=== PATIENT | female | born 1985 | race Two or more races ===

== ENCOUNTER 2016-10-23 13:53 | Emergency (ER) | payer BC, MEDICAID ==
[2016-10-23 16:04] LABS: ABSOLUTE BASOPHILS # (AUTO) 0.1 10^3/uL (0.0-0.2); ABSOLUTE EOSINOPHILS # (AUTO) 0.2 10^3/uL (0.0-0.6); ABSOLUTE LYMPHOCYTES (AUTO) 1.8 10^3/uL (0.5-4.7); ABSOLUTE MONOCYTES (AUTO) 1.1 10^3/uL (0.1-1.4); ABSOLUTE NEUT (AUTO) 8.8 10^3/uL (1.7-8.2); BASOPHILS % (AUTO) 0.5 % (0-2); EOSINOPHILS % (AUTO) 1.6 % (0-6); HEMOGLOBIN 12.5 g/dL (12.0-15.5); HGB HCT DIFFERENCE -1.5; MEAN CORPUSCULAR HEMOGLOBIN 26.9 pg (27.0-33.4); MEAN CORPUSCULAR VOLUME 84 fl (80-97); MONOCYTES % (AUTO) 8.9 % (3-13); RED BLOOD COUNT 4.65 10^6/uL (3.72-5.28); WHITE BLOOD COUNT 11.9 10^3/uL (4.0-10.5)
[2016-10-23 16:22] LABS: APPEARANCE,URINE CLEAR; BILIRUBIN,URINE NEGATIVE (NEGATIVE); GLUCOSE, URINE NEGATIVE (NEGATIVE); KETONES,URINE NEGATIVE (NEGATIVE); LEUKOCYTE ESTERASE,URINE TRACE (NEGATIVE); NITRITE,URINE NEGATIVE (NEGATIVE); PROTEIN,URINE NEGATIVE (NEGATIVE); URINE SPECIFIC GRAVITY 1.002; UROBILINOGEN,URINE NEGATIVE mg/dL (<2.0)
[2016-10-23 16:29] LABS: ANION GAP 11 (5-19); BACTERIA,URINE TRACE /HPF; BLOOD UREA NITROGEN 6 mg/dL (7-20); CALCIUM 9.8 mg/dL (8.4-10.2); CARBON DIOXIDE 23 mmol/L (22-30); CHLORIDE 103 mmol/L (98-107); GLUCOSE 72 mg/dL (75-110); POTASSIUM 4.1 mmol/L (3.6-5.0); SODIUM 137.4 mmol/L (137-145)
--- NOTE | 2016-10-23 16:45 | RADIOLOGY REPORT (SQ) ---
EXAM DESCRIPTION: U/S OB 14+ TRNABD 1GES W/O DOP COMPLETED DATE/TIME: 10/23/2016 4:32 pm REASON FOR STUDY: vaginal bleeding COMPARISON: 02/13/2013 TECHNIQUE: Static and Dynamic grayscale imaging performed of gravid uterus using transabdominal appr oach. Additional selected color Doppler and spectral images recorded. All stored on PACS. LIMITATIONS: Limited visualization of anatomy due to positioning and early gestational an age FINDINGS: EGA: 15 weeks, 5 days MARU: 04/11/2017 EFW: 128 g +/- 19 g PERCENTILE: Not applicable. Fetus less than or equal to 20 weeks gestation. JOSS: Adequate amount. PLACENTA: Anterior PRESENTATION: Variable ANATOMY: HEART RATE: 147 beats per minute. FOUR CHAMBER HEART: Not visualized THREE VESSEL CORD: Not visualized CORD INSERTION: Not visualized KIDNEYS AND BLADDER: Not visualized STOMACH: Visualized and appears normal. SPINE: Normal as visualized. BRAIN AND LATERAL VENTRICLES: Not visual OTHER: No other significant finding. MATERNAL ADNEXA: Maternal ovaries not visualized. CERVICAL LENGTH: 4.4 cm Closed. OTHER: 5.4 x 4.2 x 4.2 cm rounded structure demonstrating heterogeneous echogenicity within the poste rior myometrium, most likely on the basis of an intramural fibroid. IMPRESSION: LIVING INTRAUTERINE . ESTIMATED GESTATIONAL AGE 15 weeks, 5 days NO VISUALIZED ANOMALIES. Trimester of : Second trimester - 13 weeks 1 day to 27 weeks 6 days. TECHNICAL DOCUMENTATION: JOB ID: [id number] [employer]- All Rights Reserved
[2016-10-23] MEDS ORDERED: NITROFURANTOIN MONOHYD/M-CRYST 100 MG CAPSULE PO ONE (17:35)
--- NOTE | 2016-10-23 17:50 | ER Document Report ---
ED General - General Chief Complaint: Vag Bleeding, +preg <12wks Stated Complaint: VAGINAL BLEEDING Time Seen by Provider: 10/23/16 15:07 TRAVEL OUTSIDE OF THE [place] IN LAST 30 DAYS: No - HPI Patient complains to provider of: Vaginal bleeding lower abdominal pain Notes: Patient coming in for evaluation of lower abdominal pain vaginal bleeding. Patient states she is approximately 14 weeks . Patient is not aware of her Rh status. Patient denies any history of trauma denies fevers chills nausea vomiting diarrhea - Related Data Allergies/Adverse Reactions: No Known Allergies Allergy (Verified 10/23/16 13:55) Past Medical History - General Last Menstrual Period: 06/06/2016 - Social History Smoking Status: Never Smoker Chew tobacco use (# tins/day): No Frequency of alcohol use: None Drug Abuse: None Family History: Reviewed & Not Pertinent Patient has suicidal ideation: No Patient has homicidal ideation: No Pulmonary Medical History: Denies: Hx Tuberculosis Renal/ Medical History: Denies: Hx Peritoneal Dialysis Past Surgical History: Reports: Hx Gynecologic Surgery - exp lap (ectopic) - Immunizations Hx Diphtheria, Pertussis, Tetanus Vaccination: No Review of Systems - Review of Systems Constitutional: No symptoms reported EENT: No symptoms reported Cardiovascular: No symptoms reported Respiratory: No symptoms reported Gastrointestinal: No symptoms reported Genitourinary: No symptoms reported Female Genitourinary: Vaginal discharge, Vaginal bleeding Musculoskeletal: No symptoms reported Skin: No symptoms reported Hematologic/Lymphatic: No symptoms reported Neurological/Psychological: No symptoms reported -: Yes All other systems reviewed and negative Physical Exam - Vital signs Vitals: Temp Pulse Resp BP Pulse Ox 98.2 F 102 H 18 134/90 H 98 10/23/16 13:55 10/23/16 13:55 10/23/16 13:55 10/23/16 13:55 10/23/16 13:55 Interpretation: Normal - General General appearance: Appears well, Alert - HEENT Head: Normocephalic, Atraumatic Eyes: Normal Pupils: PERRL - Respiratory Respiratory status: No respiratory distress Chest status: Nontender Breath sounds: Normal Chest palpation: Normal - Cardiovascular Rhythm: Regular Heart sounds: Normal auscultation Murmur: No - Abdominal Inspection: Normal Distension: No distension Bowel sounds: Normal Tenderness: Nontender Organomegaly: No organomegaly - Back Back: Normal, Nontender - Extremities General upper extremity: Normal inspection, Nontender, Normal color, Normal ROM , Normal temperature General lower extremity: Normal inspection, Nontender, Normal color, Normal ROM , Normal temperature, Normal weight bearing. No: Deanna's sign - Neurological Neuro grossly intact: Yes Cognition: Normal Orientation: AAOx4 [place] Coma Scale Eye Opening: Spontaneous [place] Coma Scale Verbal: Oriented [place] Coma Scale Motor: Obeys Commands [place] Coma Scale Total: 15 Speech: Normal Motor strength normal: LUE, RUE, LLE, RLE Sensory: Normal - Psychological Associated symptoms: Normal affect, Normal mood - Skin Skin Temperature: Warm Skin Moisture: Dry Skin Color: Normal Course - Re-evaluation Re-evalutation: 10/23/16 20:56 Reason for vaginal bleeding. Patient's ultrasound did not show any signs of significant pathology. Patient does have bacteria in the urine will treat for UTI. Patient encouraged follow-up with her LIBRARY AIDE. - Vital Signs Vital signs: Temp Pulse Resp BP Pulse Ox 98.2 F 90 15 118/96 H 99 10/23/16 13:55 10/23/16 17:53 10/23/16 17:53 10/23/16 17:53 10/23/16 17:53 - Laboratory Result Diagrams: 10/23/16 15:44 10/23/16 15:44 Laboratory results interpreted by me: 10/23/16 10/23/16 10/23/16 15:44 15:44 15:44 WBC 11.9 H MCH 26.9 L RDW 15.0 H Absolute Neutrophils 8.8 H BUN 6 L Creatinine 0.40 L Glucose 72 L Beta HCG, Quant 10658.00 H Urine Blood MODERATE H Ur Leukocyte Esterase TRACE H Discharge - Discharge Clinical Impression: Abdominal pain in Qualifiers: Trimester: first trimester Qualified Code(s): O26.891 - Other specified related conditions, first trimester; R10.9 - Unspecified abdominal pain Vaginal bleeding in Qualifiers: Trimester: first trimester Qualified Code(s): O46.91 - Antepartum hemorrhage, unspecified, first trimester Urinary tract infection Qualifiers: Urinary tract infection type: acute cystitis Hematuria presence: without hematuria Qualified Code(s): N30.00 - Acute cystitis without hematuria Condition: Good Disposition: HOME, SELF-CARE Instructions: ([facility]), Bleeding During Early ([facility]), Pelvic Pain in ([facility]), Urinary Tract Infection ([facility]) Additional Instructions: Take Medication as prescribed. Return to the ER symptoms worsen. Follow with your primary care physician. Prescriptions: Nitrofurantoin/Nitrofuran Mac [Macrobid 100 mg Capsule] 1 tab PO BID #14 capsule Forms: Return to Work Referrals: JANEY LOZADA MD [Primary Care Provider] - Follow up as needed
[2016-10-23 17:55] VITALS: BP 118/96
== END 2016-10-23 18:00 | disposition home or self-care (01) ==
LOC: ER 13:53
DX: O46.91 Antepartum hemorrhage, unspecified, first trimester (principal); O26.891 Other specified pregnancy related conditions, first trimester; N30.00 Acute cystitis without hematuria; R10.30 Lower abdominal pain, unspecified
CPT/HCPCS: 99284; 86900; 86901; 36415; 84702; 85025; 80048; 81001; 76805; J8499

== ENCOUNTER 2017-03-09 10:24 | Inpatient (IN) | payer BC ==
[2017-03-09 11:11] LABS: APPEARANCE,URINE CLEAR; BILIRUBIN,URINE NEGATIVE (NEGATIVE); GLUCOSE, URINE NEGATIVE (NEGATIVE); KETONES,URINE NEGATIVE (NEGATIVE); LEUKOCYTE ESTERASE,URINE TRACE (NEGATIVE); NITRITE,URINE NEGATIVE (NEGATIVE); PROTEIN,URINE NEGATIVE (NEGATIVE); URINE SPECIFIC GRAVITY 1.008; UROBILINOGEN,URINE NEGATIVE mg/dL (<2.0)
[2017-03-09 11:24] LABS: URINE BARBITURATES SCREEN NEGATIVE; URINE METHADONE SCREEN NEGATIVE; URINE OPIATES LOW NEGATIVE; URINE PHENCYCLIDINE SCREEN NEGATIVE
--- NOTE | 2017-03-09 13:05 | RADIOLOGY REPORT (SQ) ---
EXAM DESCRIPTION: U/S OB LIMITED COMPLETED DATE/TIME: 03/09/2017 12:55 pm REASON FOR STUDY: IUP 34 wks vaginal leaking/JOSS COMPARISON: 10/23/2016 TECHNIQUE: Limited transabdominal grayscale ultrasound for evaluation of specific requested obstetri carl parameters. LIMITATIONS: None. FINDINGS: CERVICAL LENGTH: Not measured. Closed. JOSS: 7.3 cm. FHR: 173 beats per minute. PRESENTATION: Cephalic. OTHER: No other significant findings. IMPRESSION: LIMITED OBSTETRICAL ULTRASOUND WITH MEASURED PARAMETERS DELINEATED ABOVE. Trimester of : Third trimester - 28 weeks to delivery. TECHNICAL DOCUMENTATION: JOB ID: [id number] [employer]- All Rights Reserved
[2017-03-09] MEDS ORDERED: PENICILLIN G-K 5 MILLION UNIT VIAL IV ONE (13:13)
[2017-03-09] MEDS ORDERED: PENICILLIN G-K 5 MILLION UNIT VIAL ONE ×3 (13:27→21:18)
[2017-03-09] MEDS: RINGERS SOLUTION,LACTATED 1,000 ML IV PRN (13:36)
[2017-03-09 14:32] LABS: ABSOLUTE EOSINOPHILS # (AUTO) 0.2 10^3/uL (0.0-0.6); ABSOLUTE LYMPHOCYTES (AUTO) 1.9 10^3/uL (0.5-4.7); ABSOLUTE MONOCYTES (AUTO) 0.9 10^3/uL (0.1-1.4); ABSOLUTE NEUT (AUTO) 6.3 10^3/uL (1.7-8.2); BASOPHILS % (AUTO) 0.5 % (0-2); EOSINOPHILS % (AUTO) 1.9 % (0-6); HEMATOCRIT 35.3 % (36.0-47.0); HEMOGLOBIN 11.9 g/dL (12.0-15.5); HGB HCT DIFFERENCE 0.4; LYMPHOCYTES % (AUTO) 20.5 % (13-45); MEAN CORPUSCULAR HEMOGLOBIN 28.5 pg (27.0-33.4); MEAN CORPUSCULAR HGB CONC 33.6 g/dL (32.0-36.0); MEAN CORPUSCULAR VOLUME 85 fl (80-97); MONOCYTES % (AUTO) 9.6 % (3-13); RED BLOOD COUNT 4.16 10^6/uL (3.72-5.28); RED CELL DISTRIBUTION WIDTH 15.2 % (11.5-14.0); SEGMENTED NEUTROPHILS % (AUTO) 67.5 % (42-78); WHITE BLOOD COUNT 9.4 10^3/uL (4.0-10.5)
--- NOTE | 2017-03-09 14:37 | L&D Progress Notes ---
PROGRESS NOTES Datetime Report Generated by CPN: 03/09/2017 14:37 PROGRESS NOTE Vital Signs : Reviewed; Within Normal Limits Comment: Spec exam, + pooling, moderate amount of fluid, amnisure obtained, irreg uc's, OOB to BR, pt received 1000cc LR, JOSS 7 FETUS A FHR - Baseline: 140 Monitoring: External US Variability: Moderate 6-25bpm Accelerations: 15X15 Decelerations: None : 34.3 SIGNATURE SIGNATURE: [id number] Assignment: Clarence Zarate MD Signature: with User ID: [email or web address] : with User ID: [email or web address]
[2017-03-09 14:53] LABS: AMNISURE (ROM) POSITIVE (NEGATIVE)
[2017-03-09] MEDS ORDERED: OXYTOCIN/NORMAL SALINE 20 UNIT/1,000 ML RTUINJ IV PRN (15:08)
[2017-03-09] MEDS ORDERED: OXYTOCIN/NORMAL SALINE 20 UNIT/1,000 ML RTUINJ ONE (16:00)
[2017-03-09] MEDS: PENICILLIN G POTASSIUM 2,500,000 UNIT in DEXTROSE 5%-WATER 50 ML IV SCH ×2 (17:32→21:26)
[2017-03-09] MEDS ORDERED: ONDANSETRON HCL INJ/PF 4 MG/2 ML SDV IV ONE (23:46)
[2017-03-09] MEDS ORDERED: ONDANSETRON HCL INJ/PF 4 MG/2 ML SDV ONE (23:50)
[2017-03-10] MEDS ORDERED: FENTANYL/BUPIVACAINE/NS/PF 200 MCG/100 ML RTUINJ EPI PRN (01:15)
[2017-03-10] MEDS ORDERED: BUPIVACAINE HCL 0.25 % INJ/PF (2.5 MG/1 ML) 30 ML VIAL INFIL ONE (01:15)
[2017-03-10] MEDS ORDERED: EPHEDRINE SULFATE INJ 50 MG/1 ML AMPULE IV PRN (01:15)
[2017-03-10] MEDS ORDERED: BENZOIN/ALOE VERA/STORAX/TOLU TINCTURE 60 ML TP PRN (01:15)
[2017-03-10] MEDS ORDERED: DIPHENHYDRAMINE HCL 50 MG/ML VIAL IV PRN (01:15)
[2017-03-10] MEDS ORDERED: PHENYLEPHRINE HCL INJ/PF 10 MG/1 ML SDV ONE (01:23)
[2017-03-10] MEDS ORDERED: EPHEDRINE SULFATE INJ 50 MG/1 ML AMPULE ONE (01:23)
[2017-03-10] MEDS ORDERED: FENTANYL CITRATE INJ/PF 100 MCG/2 ML AMPUL ONE (01:23)
[2017-03-10] MEDS ORDERED: FENTANYL/BUPIVACAINE/NS/PF 200 MCG/100 ML RTUINJ EPI ONE (01:24)
[2017-03-10] MEDS ORDERED: BUPIVACAINE HCL 0.25 % INJ/PF (2.5 MG/1 ML) 30 ML VIAL ONE (01:24)
[2017-03-10] MEDS ORDERED: PENICILLIN G-K 5 MILLION UNIT VIAL ONE ×2 (01:33→05:07)
[2017-03-10] MEDS ORDERED: LIDOCAINE 1% INJ-PF (10 MG/ML) 30 ML SDV ONE (01:54)
[2017-03-10] MEDS ORDERED: MISOPROSTOL 0.2 MG TABLET ONE (01:54)
[2017-03-10] MEDS ORDERED: OXYTOCIN/NORMAL SALINE 20 UNIT/1,000 ML RTUINJ ONE (01:54)
[2017-03-10] MEDS: RINGERS SOLUTION,LACTATED 1,000 ML IV PRN ×2 (02:14→03:01)
[2017-03-10] MEDS: PENICILLIN G POTASSIUM 2,500,000 UNIT in DEXTROSE 5%-WATER 50 ML IV SCH ×2 (02:50→05:13)
[2017-03-10] MEDS ORDERED: MAGNESIUM HYDROXIDE SUSP 30 ML UDCUP PO PRN (03:30)
[2017-03-10] MEDS ORDERED: DIPHENHYDRAMINE HCL 25 MG CAPSULE PO PRN (03:30)
[2017-03-10] MEDS ORDERED: PROMETHAZINE HCL INJ 25 MG/1 ML VIAL IV PRN (03:30)
[2017-03-10] MEDS ORDERED: DIBUCAINE 1% OINTMENT 28 GM TP PRN (03:30)
[2017-03-10] MEDS ORDERED: OXYTOCIN/NORMAL SALINE 20 UNIT/1,000 ML RTUINJ IV PRN (03:30)
[2017-03-10] MEDS ORDERED: MEASLES,MUMPS&RUBELLA VACC/PF 0.5 ML VIAL SUBCUT PRN (03:30)
[2017-03-10] MEDS ORDERED: BENZOCAINE/MENTHOL AEROSOL SPRAY 56 ML TOP PRN (03:30)
[2017-03-10] MEDS ORDERED: ACETAMINOPHEN WITH CODEINE #3 TABLET PO PRN ×2 (03:30)
[2017-03-10] MEDS ORDERED: DIPH/PERTUSS(ACELL)/TETANUS VAC/PF 0.5 ML SYR (>=10YO) IM PRN (03:30)
[2017-03-10] MEDS ORDERED: PROMETHAZINE HCL 25 MG TABLET PO PRN (03:30)
[2017-03-10] MEDS ORDERED: ACETAMINOPHEN 650 MG SUPP.RECT PR PRN (03:30)
[2017-03-10] MEDS ORDERED: NA PHOS,M-B/NA PHOS,DI-BA (ADULT) 133 ML ENEMA PR PRN (03:30)
[2017-03-10] MEDS ORDERED: GLYCERIN/WITCH HAZEL LEAF 1 EACH MED..PAD TP PRN (03:30)
[2017-03-10] MEDS ORDERED: PSEUDOEPHEDRINE HCL 30 MG TABLET PO PRN (03:30)
[2017-03-10] MEDS ORDERED: PROMETHAZINE HCL 25 MG SUPP.RECT PR PRN (03:30)
[2017-03-10] MEDS ORDERED: ZOLPIDEM TARTRATE 5 MG TABLET PO PRN (03:30)
[2017-03-10] MEDS ORDERED: PENICILLIN G-K 5 MILLION UNIT VIAL IV SCH (10:00)
--- NOTE | 2017-03-10 10:13 | Admission Physical ---
Datetime Report Generated by CPN: 03/10/2017 10:13 CURRENT ADMISSION Hx Assessment: The History has been Reviewed and is Current Chief Complaint: Suspected Ruptured Membranes Indication for Induction: PROM Indication for Induction: , Intrauterine ; No Active Labor; Ruptured Membranes; Induction of Labor Admit Plan: Admit to Unit; Initiate Labor Induction Protocol ALLERGIES Medication Allergies: No Medication Allergies: No Known Allergies (10/23/2016) Latex: No Latex Allergies OBSTETRICAL HISTORY EDC: 04/17/2017 00:00 : 2 Para: 0 (Annotations: Data stored by N on behalf of user) Term: 0 : 0 SAB: 0 IAB: 0 Ectopic: 1 Livin Cesareans: 0 VBACs: 0 Multiple Births: 0 Gestational Diabetes: No Rh Sensitization: No Incompetent Cervix: No BRENDON: No Infertility: Yes ART Treatment: No Uterine Anomaly: Yes IUGR: No Hx Previous C/S: No Macrosomia: No Hx Loss/Stillborn: No PIH: No Hx : No Placenta Previa/Abruption: No Depression/PP Depression: No PTL/PROM: No Post Hemorrhage: No Current Procedures: Ultrasound Obstetrical History Comments: G1- Ectopic 3 months, 2012 G2- Current, uterine fibroid SEE RECORDS Alcohol: No Marijuana : No Cocaine: No Other Illicit Drugs: No Cigarettes: Never Smoker. [id number] MEDICAL HISTORY Diabetes: No Blood Transfusion: No Pulmonary Disease (Asthma, TB): No Breast Disease: No Hypertension: No Manager Critical Care Unit Surgery: No Heart Disease: No Hosp/Surgery: No Autoimmune Disorder: No Anesthetic Complications: No Kidney Disease: No Abnormal Pap Smear: No Neuro/Epilepsy: No Psychiatric Disorders: No Other Medical Diseases: No Hepatitis/Liver Disease: No Significant Family History: No Varicosities/Phlebitis: No Trauma/Violence : No Thyroid Dysfunction: No INFECTIOUS HISTORY Gonorrhea: No Genital Herpes: No Chlamydia: No Tuberculosis: No Syphilis: No Hepatitis: No HIV/AIDS Exposure: No Rash or Viral Illness: No HPV: No PHYSICAL EXAM General: Normal HEENT: Deferred Neurologic: Normal Thyroid: Normal Heart: Normal Lungs: Normal Breast: Deferred Back: Normal Abdomen: Normal Genitourinary Exam: Normal Extremities: Normal DTRs: Normal Pelvic Type: Adequate Physical Exam Comments: G2, AB 1 ectopic Vital Signs: Reviewed MEMBRANES Pooling: Positive Ferning Results: Positive Membranes: Ruptured Amniotic Fluid Color: Clear FETUS A EGA: 34.3 Monitoring: External US FHR- Baseline: 130 Variability: Moderate 6-25bpm Accelerations: 15X15 Decelerations: None Admit Comment: Admitted to L_D after POS amnisure for SROM @ 3 AM, was seen in office and sent to L_D, POC discussed with patient after consulting with Dr. Zarate, will admit and start Pitocin induction, IV antibiotics started, unknown GBS status, Cat 1 strip PLANS FOR LABOR AND DELIVERY Labor and Delivery: None Pain Management: Epidural (Annotations: Data stored by [facility] on behalf of user) Feeding Preference: Breast Benefit of Breast Feed Discussed: Yes Circumcision: Yes INFORMED CONSENT Assignment: Clarence Zarate MD Signature: with User ID: [email or web address] : with User ID: [email or web address]
[2017-03-10] MEDS: SENNOSIDES/DOCUSATE 8.6-50 MG 1 EACH TABLET PO SCH (10:18)
[2017-03-10] MEDS: FERROUS SULFATE 325 MG TABLET PO SCH ×2 (10:18→17:45)
[2017-03-10] MEDS: PRENATAL VITAMIN W-O CA NO5/FE FUMARATE/FA CAPSULE PO SCH (10:19)
[2017-03-10] MEDS: FAMOTIDINE 20 MG TABLET PO SCH ×2 (10:19→21:01)
[2017-03-10] MEDS: DOCUSATE SODIUM 100 MG CAPSULE PO SCH ×2 (10:19→17:45)
[2017-03-10] MEDS: IBUPROFEN 800 MG TABLET PO SCH ×3 (10:31→21:00)
[2017-03-11] MEDS: IBUPROFEN 800 MG TABLET PO SCH ×3 (05:12→21:41)
[2017-03-11 07:31] LABS: HEMATOCRIT 26.4 % (36.0-47.0); HGB HCT DIFFERENCE 0.6; MEAN CORPUSCULAR HEMOGLOBIN 28.9 pg (27.0-33.4); MEAN CORPUSCULAR HGB CONC 34.1 g/dL (32.0-36.0); MEAN CORPUSCULAR VOLUME 85 fl (80-97); RED BLOOD COUNT 3.11 10^6/uL (3.72-5.28); RED CELL DISTRIBUTION WIDTH 15.8 % (11.5-14.0); WHITE BLOOD COUNT 10.8 10^3/uL (4.0-10.5)
[2017-03-11] MEDS: FERROUS SULFATE 325 MG TABLET PO SCH ×2 (09:51→18:25)
[2017-03-11] MEDS: SENNOSIDES/DOCUSATE 8.6-50 MG 1 EACH TABLET PO SCH (09:51)
[2017-03-11] MEDS: FAMOTIDINE 20 MG TABLET PO SCH ×2 (09:51→21:41)
[2017-03-11] MEDS: DOCUSATE SODIUM 100 MG CAPSULE PO SCH ×2 (09:51→18:25)
[2017-03-11] MEDS: PRENATAL VITAMIN W-O CA NO5/FE FUMARATE/FA CAPSULE PO SCH (09:51)
--- NOTE | 2017-03-11 12:20 | PDOC PROGRESS REPORT ---
Subjective-OB Subjective: Post Delivery Day: 31 year old. Denies any needs at this time Physical Exam (OB) Vital Signs: Temp Pulse Resp BP Pulse Ox 98.5 F 97 20 107/68 99 03/10/17 20:41 03/10/17 20:41 03/10/17 20:41 03/10/17 20:41 03/10/17 20:41 Intake & Output 03/10/17 03/11/17 03/12/17 06:59 06:59 06:59 Weight 76.1 kg - PIH/Pre-Eclampsia DTR's: 2 + Clonus: Negative Headache: Absent Epigastric Pain: No Visual Changes: No - Lochia Lochia Amount: Small 10-25 ml Lochia Color: Rubra/Red - Abdomen Description: Soft, Round Hernia Present: No Bowel Sounds: Normoactive Flatus Presence: Present Stool: No Fundal Description: Firm, Midline Fundal Height: u/u - u/2 Objective-Diagnostic Laboratory: 03/11/17 07:01 03/11/17 07:01 WBC 10.8 H RBC 3.11 L Hgb 9.0 L D Hct 26.4 L MCV 85 MCH 28.9 MCHC 34.1 RDW 15.8 H Plt Count 157
[2017-03-12] MEDS: IBUPROFEN 800 MG TABLET PO SCH ×2 (05:40→14:56)
[2017-03-12 08:32] VITALS: BP 121/79
--- NOTE | 2017-03-12 10:27 | PDOC PROGRESS REPORT ---
Subjective-OB Subjective: Post Delivery Day: 31 year old. Denies any needs at this time. Ready for discharge. Physical Exam (OB) Vital Signs: Temp Pulse Resp BP Pulse Ox 98.1 F 100 18 121/79 100 03/12/17 08:30 03/12/17 08:30 03/12/17 08:30 03/12/17 08:15 03/12/17 08:30 Intake & Output 03/11/17 03/12/17 03/13/17 06:59 06:59 06:59 Intake Total 240 Balance 240 - PIH/Pre-Eclampsia DTR's: 2 + Clonus: Negative Headache: Absent Epigastric Pain: No Visual Changes: No - Lochia Lochia Amount: Small 10-25 ml Lochia Color: Rubra/Red - Abdomen Description: Soft, Round Hernia Present: No Bowel Sounds: Normoactive Flatus Presence: Present Stool: Yes Fundal Description: Firm, Midline Fundal Height: u/u - u/2 Objective-Diagnostic Laboratory: 03/11/17 07:01
--- NOTE | 2017-03-12 10:35 | PDOC DISCHARGE SUMMARY ---
Final Diagnosis Discharge Date: 03/12/17 - Final Diagnosis (1) Delivery normal Is this a current diagnosis for this admission?: Yes (2) Is this a current diagnosis for this admission?: Yes (3) premature rupture of membranes (PPROM) delivered, current hospitalization Is this a current diagnosis for this admission?: Yes Discharge Data - Discharge Medication Home Medications: Vit 93/Iron Fum/Folic [ Formula Tablet] 1 each PO DAILY Ferrous Sulfate [Iron] 325 mg PO BID #60 tablet 03/12/17 Gestational Age: 34.4 wks Reason(s) for Admission: PROM Procedures: Ultrasound Intrapartum Procedure(s): Spontaneous Vaginal Delivery - [place] Data Baby 1 Male at 1 minute: 8 at 5 minutes: 9 Weight: 2.438 kg Home with Mother: No Complications: Yes - Prematurity - Diagnosis Test Laboratory: Temp Pulse Resp BP Pulse Ox 98.1 F 100 18 121/79 100 03/12/17 08:30 03/12/17 08:30 03/12/17 08:30 03/12/17 08:15 03/12/17 08:30 03/09/17 03/09/17 03/11/17 10:36 13:59 07:01 RBC 4.16 3.11 L Hgb 11.9 L 9.0 L D Hct 35.3 L 26.4 L Urine Opiates Screen NEGATIVE - Discharge information/Instructions Discharge Activity: Activity As Tolerated, Balance Activity w/Rest, No Lifting Over 10 Pounds, Pelvic Rest, Slowly Increase Activity, No tub bath Discharge Diet: Regular Disposition: HOME, SELF-CARE Follow up with: [facility] in: 4, Weeks
[2017-03-12] MEDS: SENNOSIDES/DOCUSATE 8.6-50 MG 1 EACH TABLET PO SCH (10:43)
[2017-03-12] MEDS: FAMOTIDINE 20 MG TABLET PO SCH (10:43)
[2017-03-12] MEDS: DOCUSATE SODIUM 100 MG CAPSULE PO SCH (10:43)
[2017-03-12] MEDS: FERROUS SULFATE 325 MG TABLET PO SCH (10:43)
[2017-03-12] MEDS: PRENATAL VITAMIN W-O CA NO5/FE FUMARATE/FA CAPSULE PO SCH (10:43)
--- NOTE | 2017-03-13 15:06 | Delivery Summary ---
Del Sum A-C Datetime Report Generated by CPN: 03/13/2017 15:05 DELIVERY PERSONNEL DELIVERY PERSONNEL: [id number] Delivery Doctor:: Clarence Zarate MD Labor and Delivery Nurse:: Rochelle Crespo RN Nursery Nurse:: Louise Pineda RN Nursery Nurse:: Anat Valdez RN Senior Account Executive/DOUGHNUT MACHINE OPERATOR HELPER: Mynor Blanco, DOUGHNUT MACHINE OPERATOR HELPER Additional Personnel: : Luana MATERNAL INFORMATION Delivery Anesthesia: Epidural Medications After Delivery: Pitocin Bolus-Please Comment; Pitocin Drip 20 Units/1000ml NSS Meds After Delivery Comment: 20 units pitocin bolus after placenta delivery Estimated Blood Loss (ml): 250 Maternal Complications: Premature Rupture of Membranes LABOR SUMMARY EDC: 04/17/2017 00:00 No. Babies in Womb: 1 Attempted: No Labor Anesthesia: Epidural LABOR INFORMATION Reason for Induction: Premature Rupture of Membranes Onset of Labor: 03/09/2017 16:12 Complete Dilatation: 03/10/2017 02:41 Oxytocin: Induction Group B Beta Strep: Unknown Antibiotics # of Doses: 5 Antibiotics Time of Last Dose: 514 Name of Antibiotic Given: Penicillin Steroids Given: None Reason Steroids Not Administered: Not Applicable MEMBRANES Membranes Rupture Method: Spontaneous Rupture of Membranes: 03/09/2017 03:15 Length of Rupture (hr): 27.68 Amniotic Fluid Color: Clear Amniotic Fluid Amount: Scant Amniotic Fluid Odor: Normal STAGES OF LABOR Stage 1 hr: 10 Stage 1 min: 29 Stage 2 hr: 4 Stage 2 min: 15 Stage 3 hr: 0 Stage 3 min: 4 Total Time in Labor hr: 14 Total Time in Labor min: 48 VAGINAL DELIVERY Episiotomy: None Laceration #1: Perineal Laceration Extension #1: Second Degree Laceration #2: None Laceration #3: None Laceration Repair: Yes Laceration Repair Note: repaired with 2 interrupted 3-0 chromic sutures. Sponge Count Correct: N/A Sharps Count Correct: N/A CSECTION DELIVERY Primary Indication: N/A Secondary Indication: N/A CSection Urgency: N/A CSection Incidence: N/A Labor: N/A Elective: N/A CSection Incision: N/A BABY A INFORMATION Delivery Date/Time: 03/10/2017 06:56 Method of Delivery: Vaginal Born in Route : No : N/A Forceps: N/A Vacuum Extraction: N/A Shoulder Dystocia : No PRESENTATION/POSITION BABY A Presentation: Cephalic Cephalic Presentation: Vertex Vertex Position: Right Occipital Anterior Breech Presentation: N/A PLACENTA INFORMATION BABY A Placenta Delivery Time : 03/10/2017 07:00 Placenta Method of Delivery: Spontaneous Placenta Status: Delivered SCORES BABY A Heart Rate 1 min: >100 bpm Resp Effort 1 min: Good Cry Reflex Irritability 1 min: Cough or Sneeze or Pulls Away Muscle Tone 1 min: Active Motion Color 1 min: Blue/Pale Resuscitation Effort 1 min: Tactile Stimulation SCORE 1 MIN: 8 Heart Rate 5 min: >100 bpm Resp Effort 5 min: Good Cry Reflex Irritability 5 min: Cough or Sneeze or Pulls Away Muscle Tone 5 min: Active Motion Color 5 min: Body [place], Extremities Blue Resuscitation Effort 5 min: N/A SCORE 5 MIN: 9 INFANT INFORMATION BABY A Gestational Age at Delivery: 34.4 Gestational Status: Late - 34- 36.6 Weeks Outcome : Liveborn Infant Condition : Stable Sex: Male IDENTIFICATION BABY A Infant Verification Date/Time: 03/10/2017 07:09 ID Band Number: [id number] Mother's Name Verified: Yes Infant RN Verifying Infant: R Hodgson, RNC Additional Verifying Personnel: S Camp, RN WEIGHT/LENGTH BABY A Birthweight (gm): 2438 Infant Weight (lb): 5 Weight (oz): 6 Infant Length (in): 19.25 Infant Length (cm): 48.90 CORD INFORMATION BABY A No. Cord Vessels: 3 Nuchal Cord : N/A Cord Blood Taken: Yes-For Storage (Mom's Blood type +) Suction: Mouth ASSESSMENT BABY A Infant Complications: None Physical Findings at Delivery: Other Physical Findings- Other: see nursery notes Respirations: Intercostal Retractions; Tachypnea Skin to Skin: No Associate Professor Of Surgery/ALS Called : No Infant Care By: Jovanna Valdez, RN;A Miriam, RN Transferred To: NICU BABY B INFORMATION : N/A SIGNATURES Signature: with User ID: [email or web address]
== END 2017-03-12 17:01 | disposition home or self-care (01) | DRG 775 ==
LOC: LC 10:24 → LR 15:04 → 2S 03-10 10:10
PROVIDERS: ADMIT Obstetrics & Gynecology; ATTEND Obstetrics & Gynecology
PROC: 3E033VJ Introduction of Other Hormone into Peripheral Vein, Percutaneous Approach (ICD-10-PCS; 2017-03-09)
PROC: 4A1HX4Z Monitoring of Products of Conception, Cardiac Electrical Activity, External Approach (ICD-10-PCS; 2017-03-09)
PROC: 10E0XZZ Delivery of Products of Conception, External Approach (ICD-10-PCS; principal; 2017-03-10)
PROC: 0KQM0ZZ Repair Perineum Muscle, Open Approach (ICD-10-PCS; 2017-03-10)
PROC: 3E0234Z Introduction of Serum, Toxoid and Vaccine into Muscle, Percutaneous Approach (ICD-10-PCS; 2017-03-12)
DX: O42.013 Preterm premature rupture of membranes, onset of labor within 24 hours of rupture, third trimester (principal); O70.1 Second degree perineal laceration during delivery; Z28.21 Immunization not carried out because of patient refusal; Z23 Encounter for immunization; Z3A.34 34 weeks gestation of pregnancy; Z37.0 Single live birth
CPT/HCPCS: 36415; 76815; 80307; 81001; 84112; 85025; 85027; 86592; 86850; 86900; 86901; 88307; 90715; J2370; J2405; J2540; J2590; J3010; J3490; Q0114